=== PATIENT | female | born 2000 | race African-American/Black ===

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

== ENCOUNTER 2018-03-06 19:23 | Emergency (ER) | payer MEDICAID ==
[~2018-03-06] VITALS: Ht 167.6 cm; Wt 81.6 kg
[~2018-03-06 19:23] MED LIST: IBUPROFEN600 MG ORAL
[2018-03-06] MEDS ORDERED: CLARITIN10 MG ORAL (19:32)
[2018-03-06 20:31] VITALS: BP 122/80
[2018-03-06 21:14] LABS: BASOPHILS % (AUTO) 1.3 % (0.0-2.0); EOSINOPHILS % (AUTO) 4.7 % (0.0-3.0); HEMATOCRIT 37.9 % (37.0-47.0); HEMOGLOBIN 13.4 G/DL (12.0-16.0); LYMPHOCYTES % (AUTO) 28.4 % (20.0-45.0); MEAN CORPUSCULAR VOLUME 92 FL (80-99); NEUTROPHILS % (AUTO) 59.7 % (45.0-75.0); PLATELET COUNT 263 K/UL (150-450); RED BLOOD COUNT 4.13 M/UL (4.20-5.40); WHITE BLOOD COUNT 10.6 K/UL (4.8-10.8)
[2018-03-06 21:17] LABS: APPEARANCE,URINE CLEAR; BILIRUBIN, URINE NEGATIVE (NEGATIVE); GLUCOSE, URINE (UA) NEGATIVE (NEGATIVE); KETONES,URINE 4+ (NEGATIVE); LEUKOCYTE ESTERASE ,URINE 1+ (NEGATIVE); NITRITE,URINE NEGATIVE (NEGATIVE); PH,URINE 5 (4.5-8.0); PROTEIN,URINE 2+ (NEGATIVE); UROBILINOGEN,URINE NORMAL MG/DL (0.0-1.0)
[2018-03-06 21:18] LABS: COLOR,URINE YELLOW
[2018-03-06 21:23] LABS: ALANINE AMINOTRANSFERASE 16 U/L (12-78); ALBUMIN 4.5 G/DL (3.4-5.0); ALBUMIN/GLOBULIN RATIO 1.4 (1.0-2.7); CHLORIDE 103 MMOL/L (98-107); CREATINE KINASE 186 U/L (26-308); SODIUM 139 MMOL/L (136-145)
[2018-03-06 21:29] LABS: ANION GAP 13 mmol/L (5-15); BLOOD UREA NITROGEN 9 mg/dL (7-18); CALCIUM 9.4 MG/DL (8.5-10.1); CARBON DIOXIDE 23 MMOL/L (21-32); CREATININE 0.6 MG/DL (0.55-1.30); POTASSIUM 3.2 MMOL/L (3.5-5.1)
[2018-03-06 21:42] LABS: ALKALINE PHOSPHATASE 61 U/L (46-116); ASPARTATE AMINO TRANSFERASE 16 U/L (15-37); BILIRUBIN,TOTAL 0.6 MG/DL (0.2-1.0); CKMB 2.1 NG/ML (0.0-3.6)
[2018-03-06] MEDS ORDERED: PEPCID20 MG ORAL (21:52)
[2018-03-06 22:05] VITALS: BP 117/86
[2018-03-06 22:20] VITALS: BP 117/86
--- NOTE | 2018-03-07 00:06 | Emergency Room Report ---
History of Present Illness General Chief Complaint: Chest Pain Source: Patient Present Illness HPI Patient is a 18-year-old female who presented after having constant chest pain for approximately 2 weeks. The patient stated that pain was sharp in nature. She denied any exacerbating or alleviating factors. The patient denied any change with exertion. She stated that she had recently had laboratory testing drawn by her physician and was told that she had a elevated potassium. Patient had presented to the emergency department for further workup. She denies any recent trauma. She states that there is no pain increased with deep breath. She denies increased cough or fever. Allergies: Coded Allergies: Animal Dander (Verified Allergy, Unknown, 03/06/18) Cultivated Oat Pollen (Verified Allergy, Unknown, 03/06/18) eyes swell, welts FISH CONTAINING PRODUCTS (Verified Allergy, Unknown, 03/06/18) swelling [place] Tree (Verified Allergy, Unknown, 03/06/18) Patient History Past Medical History: see triage record Last Menstrual Period: 02/08/18 Now: No : 0 Para: 0 Reviewed Nursing Documentation: PMH: Agreed; PSxH: Agreed Nursing Documentation-PMH Past Medical History: No Stated History Review of Systems All Other Systems: negative except mentioned in HPI Physical Exam Vital Signs Date Time Temp Pulse Resp B/P (MAP) Pulse Ox O2 Delivery O2 Flow Rate FiO2 03/06/18 19:27 97.1 85 14 146/76 96 Room Air 97.2 03/06/18 20:32 97 Sp02 EP Interpretation: reviewed, normal General Appearance: normal inspection, well appearing, no apparent distress, alert, GCS 15 Head: atraumatic ENT: normal ENT inspection, hearing grossly normal, normal voice Neck: normal inspection, full range of motion, supple, no bony tend Respiratory: normal inspection, lungs clear, normal breath sounds, no respiratory distress, no retraction, no wheezing Cardiovascular #1: regular rate, rhythm, no edema Gastrointestinal: normal inspection, normal bowel sounds, non tender, soft, no guarding, no hernia Genitourinary: no CVA tenderness Musculoskeletal: normal inspection, back normal, normal range of motion Neurologic: normal inspection, alert, oriented x3, responsive, urban and regional planner III-XII nml as tested, speech normal Psychiatric: normal inspection, judgement/insight normal, mood/affect normal Skin: normal inspection, normal color, no rash Medical Decision Making Diagnostic Impression: Primary Impression: Atypical chest pain ER Course Patient presented for chest pain. Differential diagnosis included but was not limited to acute coronary syndrome, pulmonary embolism, pneumonia, aortic dissection, shingles, pneumothorax, aortic dissection, esophageal rupture, pericarditis. Because of complexity of patient's case laboratory testing and imaging studies were ordered. The EKG interpreted by me showed normal sinus rhythm without acute ST or T wave changes. Chest x-ray one view showed no evidence of pneumothorax or cardiomegaly with normal mediastinum. Laboratory testing was unremarkable. Given the patient's lack of risk factors for DVT or acute coronary syndrome the patient be discharged home to follow-up with her primary care physician for further workup. Patient was started on acid blockers for possible GERD. The patient is advised to follow up with primary care doctor in 1-2 days. Patient is advised to return if any worsening condition or if any changes in status that are concerning. This report is dictated with [employer] machine whitener software which may occasionally lead to discrepancies related to use of this software. Other X-Ray Diagnostic Results Other X-Ray Diagnostic Results : # of Views/Limited Vs Complete: 1 View Indication: Pain EP Interpretation: Yes Impression: No acute disease Electronically Signed by: Electronically signed by Dr. Segun Polk M.D. Last Vital Signs Date Time Temp Pulse Resp B/P (MAP) Pulse Ox O2 Delivery O2 Flow Rate FiO2 03/06/18 22:20 97.8 80 16 117/86 100 Room Air 97 97.8 Status: improved Disposition: HOME, SELF-CARE Condition: Stable Scripts Famotidine (PEPCID) 20 Mg Tablet 20 MG ORAL DAILY, #7 TAB 0 Refills Prov: Segun Polk 03/06/18 Patient Instructions: Nonspecific Chest Pain Segun Polk Mar 07, 2018 00:06
--- NOTE | 2018-03-07 09:50 | Diagnostic Imaging Report ---
Indication: Shortness of breath Technique: One view of the chest Comparison: none Findings: Lungs and pleural spaces are clear. Heart size is normal Impression: No acute process
== END 2018-03-06 22:20 | disposition home or self-care (01) ==
LOC: EMR 21:24
DX: R07.89 Other chest pain (principal)
CPT/HCPCS: 36415; 71045; 80053; 81003; 81025; 82550; 82553; 84484; 85025; 93005; 99283; J8499